=== PATIENT | female | born 1990 | race Caucasian/White ===

== ENCOUNTER 2017-02-20 05:37 | Emergency (ER) | payer BC, OTHER ==
[~2017-02-20] VITALS: Ht 162.6 cm; Wt 110.0 kg
[~2017-02-20 05:37] MED LIST: PREN1TAB49 PO
[2017-02-20 05:55] VITALS: Ht 162.6 cm; Wt 110.0 kg
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
--- NOTE | 2017-02-20 08:41 | RADRPT ---
PROCEDURE: CT Brain. CLINICAL INDICATION: headache TECHNIQUE: The study was performed utilizing a multidetector CT scanner. Multiple axial images wer e obtained through the brain.. The images were reviewed on a PACS workstation. DLP 630 mGycm CTDIvol 45 mGy One or more of the following post reduction techniques were used: - Automated exposure control. - Adjustment of the mA and/or Kv according to patient's size. - Use of iterative reconstruction technique COMPARISON: No prior studies are available for comparison. FINDINGS: The ventricles and cerebral sulci are normal in size and configuration. There is no intracranial hem orrhage. There is no mass effect or midline shift. The lopez-white matter junction is unremarkable. The visualized bones and paranasal sinus are clear.. RPTAT: AA IMPRESSION: Unremarkable noncontrast CT brain. .Ace Pineda MD, Date Time Electronically viewed and signed by .Ace Pineda MD, on 02/20/2017 08:41 .S/
[2017-02-20] MEDS ORDERED: ACET325T33 PO (08:47)
== END 2017-02-20 10:00 | disposition home or self-care (01) ==
LOC: FTE 05:37
DX: S09.90XA Unspecified injury of head, initial encounter (principal); G44.309 Post-traumatic headache, unspecified, not intractable; E03.9 Hypothyroidism, unspecified; R51 Headache; Y08.89XA Assault by other specified means, initial encounter; Y92.9 Unspecified place or not applicable
CPT/HCPCS: 70450; Z7502